=== PATIENT | male | born 1970 | race Caucasian/White ===

== ENCOUNTER → 2018-08-17 | Outpatient (CLI) | payer OTHER | END | disposition home or self-care (01) | LOC: LABPAT 17:03 | PROVIDERS: ATTEND Orthopaedic Surgery | DX: Z01.812 Encounter for preprocedural laboratory examination (principal) | CPT/HCPCS: 87070 ==

== ENCOUNTER 2018-09-11 05:33 | Day surgery (SDC) | payer OTHER ==
[2018-09-01 08:58] VITALS: BMI 34.5
--- NOTE | 2018-09-10 13:33 | HP ---
HISTORY AND PHYSICAL HISTORY: Mikey Santos is a 48-year-old patient seen with symptomatic right knee osteoarthritis. We discussed treatment options. He elected to proceed with right total knee arthroplasty. Consent regarding the procedure was obtained. Medical clearance was provided by the [facility]. PAST MEDICAL HISTORY: Depression. PAST SURGICAL HISTORY: Right knee arthroscopy with ACL reconstruction. DAILY MEDICATIONS: Ibuprofen. ALLERGIES: None reported. SOCIAL HISTORY: Smokes half pack cigarettes daily. PHYSICAL EXAMINATION: Evaluation of the right knee, range of motion 0 to 120 degrees. Tenderness along the medial joint line with a positive medial Jose Martin's. Crepitus along the medial and patellofemoral compartments with range of motion. Pain with patellofemoral compression. Ligaments stable. Hip rotation without pain. Distal neurovascular exam is intact. RADIOGRAPHS: Radiographs of the right knee reveal severe medial moderate patellofemoral compartment osteoarthritis. IMPRESSION: 1. Right knee osteoarthritis. 2. Tobacco use. PLAN: Right total knee arthroplasty. MMODL / IJN: [id number] /
[~2018-09-11 05:33] MED LIST: ACETAMINOPHEN TAB 500 MG TAB PO ONE; DEXAMETHASONE SOD PHOSPHATE 10 MG/ML 1 ML VIAL IV ONE; HYDROmorphone 1 MG/ML 1 ML SYRINGE IVP PRN; MELOXICAM 7.5 MG TAB PO ONE; MIDAZOLAM 2 MG/2 ML VIAL IV PRN; ONDANSETRON 4 MG/2 ML VIAL IVP ONE; SCOPOLAMINE 1.5MG/72HR PATCH TRANSDERM ONE; TRANEXAMIC ACID 1,000 MG in SODIUM CHLORIDE 0.9% 50 ML IVPB ONE; ceFAZolin IN SWFI 2 GM/20 ML SYRINGE IVP ONE
[2018-09-11 06:36] LABS: Glucose,Whole Blood 111 mg/dL (75-99)
[2018-09-11] MEDS ORDERED: ONDANSETRON 4 MG/2 ML VIAL IVP ONE (06:49)
[2018-09-11] MEDS ORDERED: DEXAMETHASONE SOD PHOS (MDV) 100 MG/10 ML VIAL IVP ONE (06:49)
[2018-09-11] MEDS: LACTATED RINGERS 1,000 ML IV SCH ×2 (06:49→10:46)
[2018-09-11] MEDS ORDERED: MIDAZOLAM 2 MG/2 ML VIAL IVP ONE (06:54)
[2018-09-11] MEDS ORDERED: fentaNYL (PF) 50 MCG/ML 2 ML AMP IVP ONE (06:54)
[2018-09-11] MEDS ORDERED: ROPIVACAINE 246.25 MG, EPINEPHrine 0.5 MG, KETOROLAC 30 MG, cloNIDine HCL/PF 80 MCG, WA... MISCELLANE ONE ×5 (07:15)
[2018-09-11] MEDS ORDERED: LIDOCAINE 1% INJ 10MG/ML (20 ML MDV) ONE (07:18)
[2018-09-11] MEDS ORDERED: HYDROmorphone (PF) 1 MG/ML ONE (07:18)
[2018-09-11] MEDS ORDERED: SODIUM CHLORIDE 0.9% 100 ML BAG ONE (07:18)
[2018-09-11] MEDS ORDERED: PROPOFOL 10 MG/ML 20 ML VIAL IV ONE (07:18)
[2018-09-11] MEDS ORDERED: DEXAMETHASONE SOD PHOS (MDV) 100 MG/10 ML VIAL ONE (07:18)
[2018-09-11] MEDS ORDERED: MIDAZOLAM 2 MG/2 ML VIAL ONE (07:18)
[2018-09-11] MEDS ORDERED: SUCCINYLCHOLINE CHLORIDE VIAL 200 MG/10 ML VIAL IV ONE (07:18)
[2018-09-11] MEDS ORDERED: TRANEXAMIC ACID 1,000 MG/10 ML VIAL ONE (07:18)
[2018-09-11] MEDS ORDERED: fentaNYL (PF) 50 MCG/ML 2 ML AMP ONE (07:18)
[2018-09-11] MEDS ORDERED: ceFAZolin 3,000 MG in SODIUM CHLORIDE 0.9% IRRIGATIO 3,000 ML IRRIGATION ONE (07:50)
[2018-09-11] MEDS ORDERED: ROPIVACAINE 1,100 MG, SODIUM CHLORIDE 0.9% 500 ML 330 ML MISCELLANE PRN ×2 (07:52)
--- NOTE | 2018-09-11 07:54 | P.ONQ ---
Anesthesiology Proc Note - PNB - Peripheral Nerve Block Performed Right Adductor Canal Infusion Time Out Performed: Yes Procedure Start Time: 06:53 Indication: Acute Post-Operative Pain, Analgesia Specifically requested for management of pain by DrMarie: Enrrique Chawla Sedation Type: Sedate with meaningful contact maintained Preparation: Sterile Prep Position: Supine Catheter Depth at Skin (cm): 6 Catheter: Indwelling Needle Types: Other (see comment) (Pajunk) Needle Size: 100mm (4") Needle Gauge: 18 Technique: Ultrasound Injectate: 0.5% Ropivacaine (see comment for volume) (20 cc) Blood Aspirated: No Pain Paresthesia on Injection Noted: No Resistance on Injection: Normal Events: Uneventful and Well Tolerated
[2018-09-11] MEDS ORDERED: NALOXONE 0.4 MG/ML 1 ML VIAL IV PRN (09:28)
[2018-09-11] MEDS ORDERED: ONDANSETRON 4 MG/2 ML VIAL IVP PRN (09:28)
[2018-09-11] MEDS ORDERED: HYDROmorphone 1 MG/ML 1 ML SYRINGE IVP PRN ×3 (09:28)
[2018-09-11] MEDS ORDERED: HYDROcodone/APAP 7.5-325MG 1 EACH TAB PO PRN (09:28)
[2018-09-11] MEDS ORDERED: HYDROcodone/APAP 5-325MG 1 EACH TAB PO PRN (09:28)
--- NOTE | 2018-09-11 09:28 | P.OP ---
Date of Procedure: 09/11/18 Preoperative Diagnosis: Right knee osteoarthritis Postoperative Diagnosis: Right knee osteoarthritis Procedure(s) Performed: Right total knee arthroplasty Implants: 1. Blanca persona size 9 right cruciate retaining cemented femur 2. Blanca persona size D right cemented tibial baseplate 3. Blanca persona 11 mm medial congruent polyethylene tibial insert 4. Blanca persona 38 mm all polyethylene cemented patella Anesthesia: GETA, regional (Adductor canal catheter), local Surgeon: Enrrique Chawla Barrel Assembly Inspector #1: Jude Randolph Estimated Blood Loss (ml): 75 Pathology: none sent (Bone) Condition: stable Disposition: PACU Indications for Procedure: 48-year-old patient seen with symptomatic right knee osteoarthritis. After having treatment options discussed, he elected to proceed with total knee arthroplasty. Operative Findings: See description of procedure Description of Procedure: Patient was taken to the operative suite after having an adductor canal catheter placed by the department of anesthesia for postoperative pain control. Patient underwent a general anesthetic by the department of anesthesia. Patient was given preoperative IV intake antibiotics and TXA. A well-padded tourniquet was placed about the right lower extremity. The lower extremity was then prepped and draped in the normal sterile orthopedic fashion. The extremity was elevated, a tourniquet was insufflated to 300. A standard anterior incision was made sharply through skin. Dissection was taken down through the subcutaneous soft tissues down to the extensor mechanism. A medial arthrotomy was performed, patella was everted and knee was flexed. There was advanced osteoarthritis noted. I introduced my distal intramedullary femoral drill. I then introduced the distal femoral cutting jig. Jeffrey ESQUEDA secured the cutting jig with 2 pins. I held retractors in position while Jeffrey ESQUEDA performed the distal femoral resection through the guide area we now removed her distal femoral cutting guide. We now placed our 4-in-1 femoral cutting block and positioned and it was secured with 2 pins by Jeffrey ESQUEDA while I held the block in position. The distal femoral finishing was now completed. A proximal tibial cutting guide was positioned. I did have to remove a proximal tibial metallic interference screw which was done without difficulty. I now held the guide in the appropriate position with both hands well Jeffrey ESQUEDA inserted stabilizing pins into the guide. Proximal tibial cut was made. We now placed a trial femoral component into position, along with an appropriate size tibial tray and insert. We now took the knee through range of motion and had full extension good flexion and good overall soft tissue balance noted. The patella was everted and stabilized with 2 towel clips held by Jeffrey ESQUEDA while I performed a flush with patellar quad tendon utilizing a fresh sawblade. We templated the patella, appropriate drill holes were made. An appropriate trial patella was positioned, knee was taken through full range of motion with the patella tracking very nicely. The trial patella was removed. Drill holes were made through the femoral component. All trial components were removed after marking off the appropriate rotation of the tibia. Retractors were now positioned along the proximal tibia. An appropriate keel punch was made with the appropriate size tibial guide by myself on Jeffrey ESQUEDA assisted by holding retractors. At this point appropriate size implants were chosen and opened. The joint was irrigated copiously with pulse lavage mechanical irrigation. The posterior capsule was infiltrated with local analgesic. The wound was irrigated with pulse lavage mechanical irrigation. We mixed antibiotic methylmethacrylate. We placed the knee into flexion. We placed multiple retractors assisted by Jeffrey ESQUEDA to expose the proximal tibia. Once the methyl methacrylate was ready, the tibial component was cemented into place removing any excess methylmethacrylate form by both myself and Jeffrey ESQUEDA. The femoral component was cemented into place removing the removing any excess methylmethacrylate performed by both myself and Jeffrey ESQUEDA. We then inserted the appropriate size polyethylene tibial insert. We made sure that it was locked into position. We took the knee into full extension, and then back in a flexion making sure we had removed any excess methylmethacrylate. The patellar component was then cemented down and secured with clamp. Excess methylmethacrylate removed. We kept the knee in full extension, patellar clamp in position until methylmethacrylate had hardened. Once it had hardened the patellar clamp was removed. The knee was taken through full range of motion. The patella tracked nicely. There was good soft tissue balancing. The tourniquet was now released. Additional hemostasis was achieved via electrocautery. A second gram of TXA was given. The wound again was irrigated with pulse lavage mechanical irrigation. The superficial soft tissues were infiltrated local analgesic. The extensor mechanism was repaired with Vicryl. We checked the repair with range of motion and it was stable. The subcutaneous soft tissues were repaired with Vicryl in layers. The skin was approximated with pernio/Dermabond. Sterile dressings were applied followed by loose web roll and Mario bandage. The patient was transferred to a bed, and taken to recovery in stable and satisfactory condition. Jeffrey ESQUEDA assisted with this complex procedure.
[2018-09-11] MEDS ORDERED: LACTATED RINGERS 1,000 ML IV SCH (09:30)
[2018-09-11 09:53] VITALS: TEMP 98
--- NOTE | 2018-09-11 10:18 | XR ---
EXAMINATION TYPE: XR knee limited RT DATE OF EXAM: 09/11/2018 CLINICAL HISTORY: Postoperative evaluation Two views of the right knee are submitted. Identified are changes of total knee arthroplasty with femoral and tibial components appearing well seated. Postsurgical soft tissue changes are noted. Alignment is anatomic.
[2018-09-11] MEDS ORDERED: ceFAZolin IN SWFI 2 GM/20 ML SYRINGE IVP ONE (11:00)
[2018-09-11 11:01] VITALS: RESP 18
[2018-09-11] MEDS ORDERED: HYDROcodone/APAP 7.5-325MG 1 EACH TAB PO ONE (11:30)
[2018-09-11 13:01] VITALS: BP 150/84; PULSE 71
== END 2018-09-11 13:41 | disposition home health service (06) ==
LOC: OR 05:33
PROVIDERS: ATTEND Orthopaedic Surgery
DX: M17.11 Unilateral primary osteoarthritis, right knee (principal); F32.9 Major depressive disorder, single episode, unspecified; F17.210 Nicotine dependence, cigarettes, uncomplicated; E55.9 Vitamin D deficiency, unspecified; Z79.899 Other long term (current) drug therapy; Z79.1 Long term (current) use of non-steroidal anti-inflammatories (NSAID)
CPT/HCPCS: 97161; 73560; 27447; 64448; C1776; C1713; J2250; J0171; J2405; J0690 ×2; J3010; J1885; J1100; J2795; J0735; 88300

== ENCOUNTER → 2025-03-07 | Outpatient (CLI) | payer BC ==
--- NOTE | 2025-03-07 12:32 | NM ---
INDICATION: Patient age:Male; 54 years old; Reason for study: M25.561 pain R knee; [facility]. COMPARISON: Right knee radiograph 09/11/2020. PROCEDURE: A 3 phase bone scan limited to both knees was obtained following the IV administration of 24.3 mCi of [id number]. FINDINGS: No focal increased radiotracer uptake identified within the right knee on blood flow imagin g. Photopenic region identified within the right knee related to arthroplasty change. There is focal diffuse increase radiotracer uptake involving the left knee on blood pool imaging. Increased radiotra cer uptake identified surrounding the right knee hardware on delayed imaging. There is outlining of t he tibial component. Additional uptake identified involving the left knee most prominently involving the medial tibial plateau on delayed imaging. IMPRESSION: 1. 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 2. Degenerative changes of the left knee. [facility], , 03/07/2025 12:30 PM
== END | disposition home or self-care (01) ==
LOC: RADNMMAIN 07:09
PROVIDERS: ATTEND Orthopaedic Surgery
DX: T84.84XA Pain due to internal orthopedic prosthetic devices, implants and grafts, initial encounter (principal); M17.12 Unilateral primary osteoarthritis, left knee; Z96.651 Presence of right artificial knee joint
CPT/HCPCS: 78315; A9503